=== PATIENT | female | born 1940 | race Caucasian/White ===

== ENCOUNTER 2021-08-31 08:31 | Outpatient (CLI) | payer MEDICARE, BC | END 2021-08-31 08:32 | disposition home or self-care (01) | LOC: CSHMAMMO 08:31 | PROVIDERS: ATTEND Family Medicine | DX: Z12.31 Encounter for screening mammogram for malignant neoplasm of breast (principal); Z91.89 Other specified personal risk factors, not elsewhere classified | CPT/HCPCS: 77063; 77067 ==

== ENCOUNTER 2022-09-03 08:45 | Outpatient (CLI) | payer MEDICARE, OTHER | END 2022-09-03 08:46 | disposition home or self-care (01) | LOC: CSHMAMMO 08:45 | PROVIDERS: ATTEND Family Medicine | DX: Z12.31 Encounter for screening mammogram for malignant neoplasm of breast (principal); Z91.89 Other specified personal risk factors, not elsewhere classified | CPT/HCPCS: 77063; 77067 ==

== ENCOUNTER 2022-10-03 10:16 | Outpatient (CLI) | payer MEDICARE, OTHER | END 2022-10-03 10:17 | disposition home or self-care (01) | LOC: CSHMAMMO 10:16 | PROVIDERS: ATTEND Family Medicine | DX: Z13.820 Encounter for screening for osteoporosis (principal); Z78.0 Asymptomatic menopausal state; M85.852 Other specified disorders of bone density and structure, left thigh | CPT/HCPCS: 77080 ==

== ENCOUNTER 2023-09-05 09:02 | Outpatient (CLI) | payer MEDICARE | END 2023-09-05 09:03 | disposition home or self-care (01) | LOC: CSHMAMMO 09:02 | PROVIDERS: ATTEND Student in an Organized Health Care Education/Training Program | DX: Z12.31 Encounter for screening mammogram for malignant neoplasm of breast (principal); Z91.89 Other specified personal risk factors, not elsewhere classified | CPT/HCPCS: 77063; 77067 ==

== ENCOUNTER 2024-09-07 09:11 | Outpatient (CLI) | payer MEDICARE | END 2024-09-07 09:12 | disposition home or self-care (01) | LOC: CSHMAMMO 09:11 | PROVIDERS: ATTEND Student in an Organized Health Care Education/Training Program | DX: Z12.31 Encounter for screening mammogram for malignant neoplasm of breast (principal); Z91.89 Other specified personal risk factors, not elsewhere classified | CPT/HCPCS: 77063; 77067 ==

== ENCOUNTER 2024-10-29 13:29 | Outpatient (CLI) | payer MEDICARE | END 2024-10-29 13:30 | disposition home or self-care (01) | LOC: CSHMAMMO 13:29 | PROVIDERS: ATTEND Student in an Organized Health Care Education/Training Program | DX: M85.89 Other specified disorders of bone density and structure, multiple sites (principal) | CPT/HCPCS: 77080 ==

== ENCOUNTER 2025-09-08 08:58 | Outpatient (CLI) | payer MEDICARE | END 2025-09-08 08:59 | disposition home or self-care (01) | LOC: CSHMAMMO 08:58 | PROVIDERS: ATTEND Student in an Organized Health Care Education/Training Program | DX: Z12.31 Encounter for screening mammogram for malignant neoplasm of breast (principal); Z91.89 Other specified personal risk factors, not elsewhere classified | CPT/HCPCS: 77063; 77067 ==